=== PATIENT | female | born 1995 | race Caucasian/White ===

== ENCOUNTER → 2024-01-01 18:10 | Outpatient (REF) | payer OTHER, SELFPAY | LOC: RAD 18:10 | PROVIDERS: ATTENDING PHYSICIAN Obstetrics & Gynecology | DX: Z36.9 Encounter for antenatal screening, unspecified (principal) | CPT/HCPCS: 76801 ==

== ENCOUNTER → 2024-02-25 16:23 | Outpatient (REF) | payer OTHER, SELFPAY | LOC: RAD 16:23 | PROVIDERS: ATTENDING PHYSICIAN Obstetrics & Gynecology | DX: Z36.9 Encounter for antenatal screening, unspecified (principal) | CPT/HCPCS: 76805 ==